=== PATIENT | male | born 1960 | race Caucasian/White ===

== ENCOUNTER 2020-11-09 17:00 | Outpatient (CLI) | payer BC | END 2020-11-09 17:01 | disposition home or self-care (01) | LOC: SLEEPLAB 17:00 | PROVIDERS: ATTEND Family Medicine | DX: G47.33 Obstructive sleep apnea (adult) (pediatric) (principal) | CPT/HCPCS: 95806 ==

== ENCOUNTER 2020-12-17 19:00 | Outpatient (CLI) | payer BC | END 2020-12-17 19:01 | disposition home or self-care (01) | LOC: SLEEPLAB 19:00 | PROVIDERS: ATTEND Family Medicine | DX: G47.33 Obstructive sleep apnea (adult) (pediatric) (principal); G47.9 Sleep disorder, unspecified; R53.83 Other fatigue; R51.9 Headache, unspecified; G31.84 Mild cognitive impairment of uncertain or unknown etiology; K21.9 Gastro-esophageal reflux disease without esophagitis; G47.00 Insomnia, unspecified; F32.9 Major depressive disorder, single episode, unspecified; G47.10 Hypersomnia, unspecified; E66.9 Obesity, unspecified; Z68.41 Body mass index [BMI] 40.0-44.9, adult | CPT/HCPCS: 95811 ==

== ENCOUNTER 2025-10-06 05:33 | Day surgery (SDC) | payer OTHER, SELFPAY ==
[2025-10-02 08:18] VITALS: BMI 43.4
[2025-10-06] MEDS ORDERED: Bacitracin Zinc Ointment 30 gm TUBE ONE (06:29)
[2025-10-06] MEDS ORDERED: fentaNYL PF 100 MCG/2 ML SYRINGE ONE (06:38)
[2025-10-06] MEDS ORDERED: Lidocaine 1% PF 5 ML VIAL ONE (06:41)
[2025-10-06] MEDS ORDERED: Ondansetron PF 4 MG/2 ML Vial ONE (06:41)
[2025-10-06] MEDS ORDERED: CEFAZOLIN 1 GM VIAL ONE (07:09)
[2025-10-06] MEDS ORDERED: Rocuronium Bromide 10 MG/ML (10ML VIAL) ONE (07:28)
[2025-10-06] MEDS ORDERED: PROPOFOL 200 MG/20 ML VIAL ONE (07:28)
[2025-10-06] MEDS ORDERED: SUGAMMADEX SODIUM 200 MG/2 ML VIAL ONE (07:51)
[2025-10-06] MEDS ORDERED: HYDROcodone/Acetaminophen 5/325 mg Tablet ONE (09:38)
== END 2025-10-06 09:55 | disposition home or self-care (01) ==
LOC: SDC 05:33
PROVIDERS: ATTEND Orthopaedic Surgery Hand Surgery
DX: M65.4 Radial styloid tenosynovitis [de Quervain] (principal); M18.11 Unilateral primary osteoarthritis of first carpometacarpal joint, right hand; I10 Essential (primary) hypertension; E11.9 Type 2 diabetes mellitus without complications; G47.30 Sleep apnea, unspecified
CPT/HCPCS: A6223; J0690; J0702; J1100; J2405; J2704; J3010